=== PATIENT | female | born 1980 | race Two or more races ===

== ENCOUNTER 2020-05-14 10:36 | Emergency (ER) | payer MEDICAID, OTHER ==
[~2020-05-14] VITALS: Ht 152.4 cm; Wt 63.5 kg
[2020-05-14 15:35] VITALS: BP 143/82
== END 2020-05-14 15:20 | disposition home or self-care (01) ==
LOC: ER 10:36
DX: O26.891 Other specified pregnancy related conditions, first trimester (principal); Z90.49 Acquired absence of other specified parts of digestive tract; V49.9XXA Car occupant (driver) (passenger) injured in unspecified traffic accident, initial encounter; Y93.89 Activity, other specified; Y92.89 Other specified places as the place of occurrence of the external cause; Y99.8 Other external cause status
CPT/HCPCS: 76801